=== PATIENT | male | born 1940 | race Caucasian/White ===

== ENCOUNTER 2017-03-29 15:43 | Inpatient (IN) | payer MEDICARE, BC ==
[~2017-03-29] VITALS: Ht 172.7 cm; Wt 95.6 kg
[~2017-03-29 15:43] MED LIST: ALLO300T2 PO; CITA40TA4 PO; PANT40TA3 PO; SIMV20TA PO
[2017-03-29 16:04] VITALS: BP 126/80; PULSE 86; RESP 16; TEMP 98.1; O2SAT 95
[2017-03-29] MEDS ORDERED: SODIUM CHLORIDE 0.9% FLUSH 10 ML FLUSH IVF PRN (16:45)
[2017-03-29] MEDS ORDERED: SODIUM CHLORID 0.9% 500 ML INJ 500 ML IV ONE (16:45)
--- NOTE | 2017-03-29 16:58 | PD ---
HPI Chief Complaint: Dizziness Time Seen by Provider: 16:37 Travel History International Travel<30 days: No Contact w/Intl Traveler<30days: No Traveled to known affect area: No History of Present Illness HPI 76-year-old male with a history of colon cancer status post resection 3 days ago at an outside hospital presents emergency Department with weakness and leg cramping. Patient states is doing his chemotherapy with a Dr. Cross. States symptoms been going on ever since he had his surgery, associated with some clear green discharge from his ostomy site. No fevers no abdominal pain no nausea vomiting no chest pain or shortness of breath. PFSH Past Medical History Cancer: Yes (STAGE IV LUNG) Cardiac Catheterization: Yes Cardiovascular Problems: Yes (CABG X 3) Chemotherapy: Yes (R/T LUNG CA) Diabetes: No Endocrine: No Genitourinary: No Immune Disorder: No Musculoskeletal: No Neurologic: No Psychiatric: No Reproductive: No Respiratory: No Myocardial Infarction: Yes Radiation Therapy: Yes (April 11) Past Surgical History Cardiac Surgery: Yes (Quadruple bypass [place] [address] Rodríguez) Coronary Artery Bypass Graft: Yes (X4) Social History Alcohol Use: No Tobacco Use: No Substance Use: No Allergies-Medications (Allergen,Severity, Reaction): Coded Allergies: No Known Allergies (Unverified , 03/29/17) Reported Meds & Prescriptions Reported Meds & Active Scripts Active Reported Fosinopril (Fosinopril Sodium) 10 Mg Tab 10 Mg PO DAILY Lomotil (Diphenoxylate-Atropine) 2.5-0.025 Mg Tab 1-2 Tab PO Q6H PRN Toprol XL (Metoprolol Succinate) 25 Mg Tab 25 Mg PO DAILY Percocet (Oxycodone-Acetaminophen) 5-325 mg Tab 1 Tab PO Q4H PRN Eliquis (Apixaban) 5 Mg Tab 5 Mg PO BID Citalopram (Citalopram Hydrobromide) 40 Mg Tab 40 Mg PO DAILY Review of Systems Except as stated in HPI: all other systems reviewed are Neg Physical Exam Narrative GENERAL: Well-developed well-nourished, no obvious distress. SKIN: Focused skin assessment warm/dry. HEAD: Atraumatic. Normocephalic. EYES: Pupils equal and round. No scleral icterus. No injection or drainage. ENT: No nasal bleeding or discharge. Mucous membranes pink and moist. NECK: Trachea midline. No JVD. CARDIOVASCULAR: Regular rate and rhythm. No murmur appreciated. RESPIRATORY: No accessory muscle use. Clear to auscultation. Breath sounds equal bilaterally. GASTROINTESTINAL: Abdomen soft, non-tender, nondistended. Hepatic and splenic margins not palpable. Healing abdominal wounds from Surgery, left-sided colostomy bag full of very liquidy green stool. Left-sided CONOR drain with minimal serous drainage. MUSCULOSKELETAL: No obvious deformities. No clubbing. No cyanosis. No edema. NEUROLOGICAL: Awake and alert. No obvious cranial nerve deficits. Motor grossly within normal limits. Normal speech. PSYCHIATRIC: Appropriate mood and affect; insight and judgment normal. Data Data Last Documented VS Vital Signs Date Time Temp Pulse Resp B/P Pulse Ox O2 Delivery O2 Flow Rate FiO2 03/29/17 20:53 Room Air 03/29/17 17:12 99 03/29/17 16:04 98.1 86 16 126/80 Orders Electrocardiogram (03/29/17 16:44) Complete Blood Count With Diff (03/29/17 16:44) Comprehensive Metabolic Panel (03/29/17 16:44) Magnesium (Mg) (03/29/17 16:44) Prothrombin Time / Inr (Pt) (03/29/17 16:44) Act Partial Throm Time (Ptt) (03/29/17 16:44) Ecg Monitoring (03/29/17 16:44) Iv Access Insert/Monitor (03/29/17 16:44) Oximetry (03/29/17 16:44) Oxygen Administration (03/29/17 16:44) Sodium Chloride 0.9% Flush (Ns Flush) (03/29/17 16:45) Sodium Chlorid 0.9% 500 Ml Inj (Ns 500 M (03/29/17 16:45) Morphine Inj (Morphine Inj) (03/29/17 18:45) Sodium Chlor 0.9% 1000 Ml Inj (Ns 1000 M (03/29/17 20:45) Admit Order (Ed Use Only) (03/29/17 ) Labs Laboratory Tests Test 03/29/17 17:15 White Blood Count 12.5 TH/MM3 Red Blood Count 4.74 MIL/MM3 Hemoglobin 13.8 GM/DL Hematocrit 41.6 % Mean Corpuscular Volume 87.7 FL Mean Corpuscular Hemoglobin 29.1 PG Mean Corpuscular Hemoglobin 33.2 % Concent Red Cell Distribution Width 13.8 % Platelet Count 1017 TH/MM3 Mean Platelet Volume 7.2 FL Neutrophils (%) (Auto) 73.7 % Lymphocytes (%) (Auto) 19.7 % Monocytes (%) (Auto) 5.8 % Eosinophils (%) (Auto) 0.2 % Basophils (%) (Auto) 0.6 % Neutrophils # (Auto) 9.2 TH/MM3 Lymphocytes # (Auto) 2.5 TH/MM3 Monocytes # (Auto) 0.7 TH/MM3 Eosinophils # (Auto) 0.0 TH/MM3 Basophils # (Auto) 0.1 TH/MM3 CBC Comment AUTO DIFF Differential Comment AUTO DIFF CONFIRMED Platelet Estimate HIGH Platelet Morphology Comment ENLARGED Prothrombin Time 11.4 SEC Prothromb Time International 1.0 RATIO Ratio Activated Partial 32.4 SEC Thromboplast Time Sodium Level 125 MEQ/L Potassium Level 5.0 MEQ/L Chloride Level 91 MEQ/L Carbon Dioxide Level 20.3 MEQ/L Anion Gap 14 MEQ/L Blood Urea Nitrogen 45 MG/DL Creatinine 4.93 MG/DL Estimat Glomerular Filtration 11 ML/MIN Rate Random Glucose 129 MG/DL Calcium Level 9.5 MG/DL Magnesium Level 2.8 MG/DL Total Bilirubin 0.5 MG/DL Aspartate Amino Transf 55 U/L (AST/SGOT) Alanine Aminotransferase 34 U/L (ALT/SGPT) Alkaline Phosphatase 180 U/L Total Protein 8.1 GM/DL Albumin 2.6 GM/DL MDM Medical Decision Making Medical Screen Exam Complete: Yes Emergency Medical Condition: Yes Interpretation(s) EKG shows sinus rhythm with normal axis and normal R-wave progression. Nonspecific RSR prime pattern in V1, no concerning ST segment changes. Abnormal EKG. Differential Diagnosis Dehydration, electrolyte abnormality, short gut syndrome, acute kidney injury Narrative Course Patient roomed emergency Department, significant findings are copious output from colostomy which is watery tinted green. He appears dehydrated, acute kidney injury present. Patient was discussed with Ellis Bautista for admission to Dr. Whittington Diagnosis Primary Impression: Acute kidney injury Additional Impression: Hyponatremia Admitting Information Admitting Physician Requests: Admit Condition: Stable Kojo Cabrera MD Mar 29, 2017 16:58
[2017-03-29 17:12] VITALS: O2SAT 99
[2017-03-29] MEDS ORDERED: PERC5TAB12 PO (17:20)
[2017-03-29] MEDS ORDERED: APIX5TAB PO (17:20)
[2017-03-29] MEDS ORDERED: LOMO2.5T PO (17:20)
[2017-03-29] MEDS ORDERED: FOSI10TA PO (17:20)
[2017-03-29] MEDS ORDERED: TOPR25TA PO (17:20)
[2017-03-29 17:37] LABS: AUTOMATED NEUTROPHIL # 9.2 TH/MM3 (1.8-7.7); BASOPHIL # 0.1 TH/MM3 (0-0.2); BASOPHIL % 0.6 % (0.0-2.0); EOSINOPHIL % 0.2 % (0.0-4.0); HEMATOCRIT 41.6 % (39.0-51.0); LYMPH % 19.7 % (9.0-44.0); LYMPHOCYTE # 2.5 TH/MM3 (1.0-4.8); MEAN CELL VOLUME 87.7 FL (80.0-100.0); MEAN CORPUSCULAR HEMOGLOBIN 29.1 PG (27.0-34.0); MEAN CORPUSCULAR HGB CONC 33.2 % (32.0-36.0); MONO % 5.8 % (0.0-8.0); NEUT % 73.7 % (16.0-70.0); PLATELET COUNT 1017 TH/MM3 (150-450); RED BLOOD COUNT 4.74 MIL/MM3 (4.50-5.90); RED CELL DISTRIBUTION WIDTH 13.8 % (11.6-17.2); WHITE BLOOD COUNT 12.5 TH/MM3 (4.0-11.0)
[2017-03-29 17:43] LABS: HEMO FLAGS AUTO DIFF
[2017-03-29 17:51] LABS: APTT (PATIENT) 32.4 SEC (24.3-30.1); PROTHROMBIN TIME - PATIENT 11.4 SEC (9.8-11.6)
[2017-03-29 18:15] LABS: ALKALINE PHOSPHATASE 180 U/L (45-117); ALT (GPT) 34 U/L (12-78); ANION GAP 14 MEQ/L (5-15); AST (GOT) 55 U/L (15-37); BICARBONATE 20.3 MEQ/L (21.0-32.0); BLOOD UREA NITROGEN 45 MG/DL (7-18); CHLORIDE 91 MEQ/L (98-107); GLOMERULAR FILTRATION RATE 11 ML/MIN (>89); MAGNESIUM 2.8 MG/DL (1.5-2.5); SODIUM (NA) 125 MEQ/L (136-145); TOTAL BILIRUBIN ADULT 0.5 MG/DL (0.2-1.0)
[2017-03-29 18:32] LABS: PLATELET ESTIMATE SMEAR HIGH (NORMAL); PLATELET MORPHOLOGY ENLARGED (NORMAL); SCAN/DIFF AUTO DIFF CONFIRMED
[2017-03-29] MEDS ORDERED: MORPHINE SULFATE 8 MG/ML INJ IV PUSH ONE (18:45)
[2017-03-29] MEDS ORDERED: SODIUM CHLOR 0.9% 1000 ML INJ 1,000 ML IV ONE (20:45)
[2017-03-29] MEDS ORDERED: ACETAMINOPHEN 325 MG TAB PO PRN ×2 (21:30)
[2017-03-29] MEDS ORDERED: NALOXONE HCL 0.4 MG/ML AMP IV PRN (21:30)
[2017-03-29] MEDS ORDERED: SENNOSIDES 8.6 MG TAB PO PRN (21:30)
[2017-03-29] MEDS ORDERED: SODIUM CHLORIDE 0.9% FLUSH 10 ML FLUSH IV FLUSH PRN (21:30)
[2017-03-29] MEDS ORDERED: MORPHINE SULFATE 4 MG/ML INJ IV PUSH PRN (21:30)
[2017-03-29] MEDS ORDERED: ONDANSETRON HCL 4 MG/2 ML VIAL IVP PRN (21:30)
[2017-03-29] MEDS ORDERED: diphenhydrAMINE HCL 50 MG/ML VIAL IV STA (21:46)
--- NOTE | 2017-03-29 21:52 | EKG ---
Date Performed: 03/29/2017 Time Performed: 17:33:59 PTAGE: 76 years EKG: Baseline artifact present POSSIBLE RIGHT VENTRICULAR CONDUCTION DELAY NONSPECIFIC T-WAVE AB NORMALITY ABNORMAL RHYTHM ECG Compared to prior electrocardiogram, Nonspecific T wave changes are bet ter-prior EKG gas artifact. PREVIOUS TRACING : 05/24/2016 08.14 DOCTOR: Daniel Esparza Interpretating Date/Time 03/29/2017 21:52:04
[2017-03-29 22:00] VITALS: O2SAT 98
[2017-03-29] MEDS: SODIUM CHLOR 0.9% 1000 ML INJ 1,000 ML IV SCH (22:17)
[2017-03-29] MEDS: HEPARIN SODIUM - SQ 10,000 UNITS/ML VIAL SQ SCH (22:17)
[2017-03-29 22:18] VITALS: BP 121/55; PULSE 62; RESP 20; O2SAT 96
[2017-03-30] VITALS (7 sets, daily range): BP systolic 105–117; BP diastolic 58–65; PULSE 69–137; RESP 17–22; TEMP 96.4–98.9; O2SAT 93–95
--- NOTE | 2017-03-30 05:43 | MH ---
cc: ARVIND GALLO DATE OF ADMISSION: 03/29/[address] Buckley TIME OF EVALUATION 23:30 CHIEF COMPLAINT Weakness, muscle cramps in the arms and legs. HISTORY OF PRESENT ILLNESS This is a pleasant 76-year-old male who has been battling rectal cancer for sometime. He has undergone chemo and radiation and recently underwent an ileostomy with robotic surgery in [place], [place], for excision of the tumor. He has an ileostomy as well as a CONOR drain in place. The patient was released from the hospital. Since being home, the patient's appetite has been very poor. He has been trying to drink water but admits that he has not been drinking enough. During his hospitalization he also had A-fib with RVR. He was placed on Eliquis as well as a blood pressure medicine and he has not been having any chest pain or shortness of breath. He is not complaining of palpitations. He has been taking all of his medication but the big issue is that he is dehydrated and is unable to eat. In the past 24 hours he has broken out with a rash that is spreading throughout both of his arms and legs and a little bit onto his torso. It is very pruritic. He does not complain of fever or chills. Did have some nausea but has not vomited and is having a lot ostomy output. MEDICATIONS ON ADMISSION Please see the chart. ALLERGIES None. PAST MEDICAL HISTORY 1. Coronary artery disease status post bypass surgery. 2. Hypertension. 3. Anxiety. 4. Prostate cancer status post radiation. 5. Rectal cancer status post radiation, chemo and now robotic-assisted surgery. SOCIAL HISTORY Quit smoking 27 years ago. . No recent alcohol. FAMILY HISTORY Non-contributory to this admission. REVIEW OF SYSTEMS A 10-point review of systems gone over with the patient and his . He is not aware of having any kidney issues. He denies any other significant changes in his medication or his overall health. He is due to follow up in [place] next week with the surgeon. A 10-point review of systems noted. PERTINENT FINDINGS ON PHYSICAL EXAMINATION VITAL SIGNS: The patient is afebrile, heart rate 62, respirations 20, blood pressure 121/77. GENERAL: This is a 76-year-old male who appears mildly uncomfortable, keeps scratching his arms but is in no respiratory distress. HEENT: Mucous membranes are mildly dry. There is no jaundice. NECK: Supple. CARDIOVASCULAR SYSTEM: Regular rate and rhythm. RESPIRATORY SYSTEM: Lungs are clear. GASTROINTESTINAL SYSTEM: Bowel sounds are present. There is an ileostomy in the mid-abdomen with good output. No surrounding erythema is noted. There is a CONOR drain in the left abdomen. The insertion site shows no drainage or surrounding erythema. SYSTEM: No suprapubic tenderness. No CVA tenderness. MUSCULOSKELETAL SYSTEM: No edema. Bakari's negative. Distal pulses are palpable. NEUROLOGIC EXAM: Awake, alert, oriented. Speech is clear and fluent. Moving all extremities symmetrically. SKIN EXAM: There is an urticarial rash that is most pronounced on the left forearm but is on both forearms, both thighs, buttocks and a little bit onto the torso. INVESTIGATIONS White count is 12.5, hemoglobin 13.8, platelets are 1017. INR is 1. Sodium is 125, potassium is 5, BUN is 45, creatinine is 4.93 (previous BUN was 19, creatinine was 1.2 on May of 2016). Bilirubin is 0.5, albumin is 2.6. IMPRESSION 1. Acute renal failure. 2. Dehydration. 3. Hyponatremia. 4. Recent ileostomy with rectal tumor removed. 5. History of coronary artery disease status post CABG. 6. Hypertension. 7. Anxiety. 8. History of prostate cancer. DISCUSSION The patient is being admitted to Dr. Gallo's service. The patient meets inpatient criteria due to the severity of his renal failure without which hospitalization includes a high risk of collapsing, going into cardiac arrhythmias or multisystem organ failure. During his hospital stay he will be aggressively hydrated, electrolytes will be monitored and replaced as needed. Benadryl will be used for his rash. We will try to adjust his medications due to his renal failure. Will check renal ultrasound and a urinalysis and follow up labs in the morning and make further recommendations as this case progresses. Estimated length of stay is 4 to 5 days. Anticipated discharge is home. Dictated by: Luke Bautista PA-C MD LUCITA De Leon/SHAQUILLE /10:39 PM /5:16 AM
--- NOTE | 2017-03-30 07:54 | HHI.PR ---
Subjective Remarks Awake but weakened Not eating very much Drinking very much Liquidy loose diarrhea noted in colostomy bag present (Enedelia Pro) Objective Objective Results - Vital Signs Date Time Temp Pulse Resp B/P Pulse Ox O2 Delivery O2 Flow Rate FiO2 03/30/17 04:00 98.9 78 18 114/64 93 03/30/17 00:00 98.8 137 22 105/64 94 03/29/17 22:18 62 20 121/55 96 Room Air 03/29/17 22:00 98 03/29/17 20:53 Room Air 03/29/17 20:50 Room Air 03/29/17 20:50 Room Air 03/29/17 17:12 99 Room Air 03/29/17 17:12 99 Room Air 03/29/17 16:56 Room Air 03/29/17 16:04 98.1 86 16 126/80 95 (Enedelia Pro) Result Diagram: 03/29/17 1715 03/29/17 1715 ROS General: Fatigue, Weakness, Other (12 point ROS done positives noted) Pulmonary: Cough (occasional) GI: Abdominal Pain (generalized upper abdomen), Diarrhea (loose stools in colostomy bag), N/V (nausea but no vomiting) (Enedelia Pro) Physical Exam Physical Exam PHYSICAL EXAMINATION GENERAL: This is a elderly male He is awake, answers simple questions only HEAD: Normocephalic Facial features appear symmetric. OROPHARYNGEAL: Oropharynx clear but dry NECK: Supple. Trachea midline without deviation. CARDIAC: Regular rhythm, regular rate, S1 and S2 are heard. I'll leave distant LUNGS: Diminished to auscultation bilaterally. No wheezing noted ABDOMEN: Soft, tender to light palpation upper abdomen, and realized, no appetite , bowel sounds soft EXTREMITIES: No edema. Her extremities warm NEUROLOGICAL: Patient mood and affect quiet SKIN:Warm and dry (Enedelia Pro) A/P Assessment and Plan 1. Acute renal failure. Will continue IV fluids at 50 cc an hour, she has not eaten or drinking very much, nephrology consult done 2. Dehydration. IV hydration monitor labs 3. Hyponatremia. Encourage patient to drink some juices, not taking very much by mouth in 4. Recent ileostomy with rectal tumor removed. Patient has ileostomy with dark watery loose stools, check for C. difficile and Lomotil ordered for his symptoms 5. History of coronary artery disease status post CABG. Medical management 6. Hypertension. Monitor vitals medical management 7. Anxiety. Patient is quiet but does answer questions. Discussed briefly his wishes for CODE STATUS which includes ventilator and CPR if needed. Patient has not thought about what his wishes are, but is very concerned that his health is declining especially since this last surgery and his diagnosis of cancer. May need palliative care in the future, currently CODE STATUS is full code full aggressive care 8. History of prostate cancer. Will review labs and recent testing per oncology, will review for possible consult. #9. Diarrhea, will check for C. difficile, Imodium ordered when necessary Vital signs reviewed afebrile heart rate labile most of the time in the 70s and 80s but has been noted to be tachycardic 130s with activity but comes right back down Labs reviewed potassium level 5., Patient has history of renal failure, leukocytosis with count at 12.5, alkaline phosphatase 180, (Enedelia Pro) Assessment and Plan patient seen and examined agree with above assessment and plan increase i/v fluids to 100cc/hr nephrology consult pending encourage po intake Renal ultrasound pending check stool for C diff plan of care discussed with patient and family at bedside discussed with Enedelia PEMBERTON (Jessica Whittington MD) Enedelia Pro Mar 30, 2017 07:54 Jessica Whittington MD Mar 30, 2017 13:43
[2017-03-30] MEDS ORDERED: FAMOTIDINE 20 MG TAB PO SCH (09:00)
[2017-03-30] MEDS ORDERED: PNEUMOCOCCAL POLYVALENT INJ 25 MCG/0.5 ML SYR IM ONE (09:00)
[2017-03-30] MEDS: SODIUM CHLOR 0.9% 1000 ML INJ 1,000 ML IV SCH ×3 (09:09→18:11)
[2017-03-30] MEDS: HEPARIN SODIUM - SQ 10,000 UNITS/ML VIAL SQ SCH ×2 (09:10→21:29)
[2017-03-30] MEDS: SODIUM CHLORIDE 0.9% FLUSH 10 ML FLUSH IV FLUSH SCH ×2 (09:12→21:30)
[2017-03-30] MEDS: MORPHINE SULFATE 4 MG/ML INJ IV PUSH PRN (10:42)
[2017-03-30] MEDS: diphenhydrAMINE HCL 25 MG CAP PO PRN ×2 (10:44→16:21)
[2017-03-30] MEDS ORDERED: LOPERAMIDE HCL 2 MG CAP PO PRN (11:00)
[2017-03-30 13:15] LABS: AUTOMATED NEUTROPHIL # 7.9 TH/MM3 (1.8-7.7); BASOPHIL % 0.3 % (0.0-2.0); EOSINOPHIL # 0.1 TH/MM3 (0-0.4); EOSINOPHIL % 1.3 % (0.0-4.0); HEMATOCRIT 35.5 % (39.0-51.0); LYMPHOCYTE # 1.3 TH/MM3 (1.0-4.8); MEAN CELL VOLUME 86.9 FL (80.0-100.0); MEAN CORPUSCULAR HEMOGLOBIN 30.3 PG (27.0-34.0); MEAN CORPUSCULAR HGB CONC 34.8 % (32.0-36.0); MONO % 3.9 % (0.0-8.0); NEUT % 81.5 % (16.0-70.0); PLATELET COUNT 750 TH/MM3 (150-450); RED BLOOD COUNT 4.09 MIL/MM3 (4.50-5.90); RED CELL DISTRIBUTION WIDTH 13.9 % (11.6-17.2); WHITE BLOOD COUNT 9.7 TH/MM3 (4.0-11.0)
[2017-03-30 13:23] LABS: BICARBONATE 20.6 MEQ/L (21.0-32.0); POTASSIUM 4.7 MEQ/L (3.5-5.1)
[2017-03-30 13:48] LABS: HEMO FLAGS AUTO DIFF
[2017-03-30 14:20] LABS: BANDS 3 % (0-6); EOSINOPHILS 1 % (0-4); NEUTROPHIL # MANUAL DIFF 6.2 TH/MM3 (1.8-7.7); PLATELET ESTIMATE SMEAR HIGH (NORMAL); PLATELET MORPHOLOGY ENLARGED (NORMAL); POLYS (SEG NEUTROPHILS) 61 % (16-70); SCAN/DIFF FINAL DIFF MANUAL; WBC DIFF SAMPLE 100
--- NOTE | 2017-03-30 14:30 | RADRPT ---
EXAM DATE/TIME: 03/30/2017 10:27 [facility] COMPARISON: No previous studies available for comparison. INDICATIONS : Increased BUN/Creatinine. MEDICAL HISTORY : Myocardial infarction. Hypertension. Carcinoma, lung. Chemotherapy. Radiation therapy. Blood transfus ion. Measles. SURGICAL HISTORY : CABG. Colon resection. ENCOUNTER: Initial ACUITY: 1 day PAIN SCORE: 5/10 LOCATION: Bilateral flank MEASUREMENTS: RIGHT KIDNEY: 11.0 x 5.4 x 4.5 cm LEFT KIDNEY: 11.4 x 4.2 x 4.9 cm FINDINGS: There is no hydronephrosis. No definite solid mass is identified. No definite stone is identified f or technique. The bladder is grossly intact for technique and not being completely distended during t he exam. CONCLUSION: Unremarkable renal ultrasound. Kevyn Patterson MD on March 30, 2017 at 14:28 Board Certified Radiologist. This report was verified electronically.
--- NOTE | 2017-03-30 19:19 | MB ---
cc: PRUDENCE CHILDRESS MD DATE OF CONSULTATION 03/30/17 REASON FOR CONSULTATION Elevated BUN and creatinine for evaluation. HISTORY OF PRESENT ILLNESS This is a 76-year-old male with past medical history of recent rectal surgery, hypertension, history of prostate cancer, ischemic heart disease post coronary artery bypass grafting, anxiety and possible chronic kidney disease who came to the hospital because of generalized weakness, feeling tired and muscle cramps. I was called to see the patient because of elevated BUN and creatinine. The patient had BUN of 45 and creatinine of 4.9 on presentation and today the creatinine is 5.1. The patient previously had creatinine of 1.2-1.6. This was in May of last year. He denies any known history of renal disease, but his creatinine was elevated in the past. The patient recently has been diagnosed with rectal cancer and underwent robotic surgery at [facility] with ileostomy and also underwent chemo and radiation therapy. The patient has CONOR drain in place. He was supposed to go back there, but he was feeling too weak and tired to go back. The patient lives here in [facility] and went there for surgery. He does not have any nausea or vomiting, but his taste is not very good and he is not eating or drinking enough. He does not have any dysuria, hematuria but did notice that he has decreased urine output. He is not taking any nonsteroidal anti-inflammatory drugs. PAST MEDICAL HISTORY 1. Hypertension, 2. Ischemic heart disease, 3. Anxiety, 4. Prostate cancer, 5. Chronic kidney disease, 6. History of rectal cancer PAST SURGICAL HISTORY 1. Robotic rectal cancer surgery and had ileostomy placed 2. Coronary artery bypass grafting in the past. REVIEW OF SYSTEMS There is no history of fever. No sore throat. No headache, dizziness or blurring of vision. He has generalized weakness, feeling tired, not eating well, decreased appetite. There is no nausea or vomiting. He has mild pain around the ileostomy and has a brownish liquid coming out from the ileostomy. There is no dysuria or hematuria but did notice has decreased urine output. He is not taking any nonsteroidal anti-inflammatory drugs. SOCIAL HISTORY The patient is . He stopped smoking a long time ago. There is no history of heavy alcoholism. FAMILY HISTORY Noncontributory. ALLERGIES NO KNOWN DRUG ALLERGIES. MEDICATIONS Currently he is getting 1. Normal saline 100 an hour. 2. Heparin 5000 units subcu q. 12-hour. 3. Famotidine 10 mg q.12 h. 4. Zofran. 5. Tylenol as needed. 6. Morphine as needed. PHYSICAL EXAMINATION GENERAL: The patient is awake, alert. He is not in acute distress. VITAL SIGNS: Blood pressure 107/62, temperature 97.8, oxygen saturation 94-95%. There is no significant hypotensive episode during this admission. HEENT: Pupils equal reacting to light. Nonicteric sclerae. Conjunctivae normal. NECK: Supple. JVD is not elevated. LUNGS: The patient has bilateral good air entry with occasional wheezing. HEART: S1, S2, regular rhythm. ABDOMEN: Distended, soft, lax. There is ileostomy in place with CONOR drain also in place. EXTREMITIESa: He has no edema in the legs. LABORATORY DATA WBC count 9.7, hemoglobin 10.4, platelet count of 750, neutrophils 81.5%. Sodium 128, potassium 4.7, chloride 92, bicarb 20.6, BUN 51, creatinine 5.1, calcium is 8.6, phosphorus 5.4. Magnesium 2.8, AST is 55, ALT is 34, alkaline phosphatase 130, total protein is 8.1 with albumin of 2.6, INR 1.0. There is no urinalysis done. IMAGING STUDIES The patient has ultrasound of the kidneys done which shows that he has both normal size kidneys and there is no hydronephrosis or solid mass. ASSESSMENT/PLAN 1. Acute kidney injury 2. Hyponatremia. 3. Post rectal surgery and ileostomy. 4. History of hypertension 5. Ischemic heart disease with history of coronary artery bypass grafting. The patient has very high BUN and creatinine. It seems like he has underlying chronic kidney disease and developed acute kidney injury. 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 The differential diagnosis will be either prerenal or possibility of ATN or acute interstitial nephritis. I will get the urine sodium and osmolality and get the urinalysis to see if he has any proteinuria. I agree with continuing the IV fluid. The sodium is slightly better, is 128. It was 125 on admission, potassium has been normal. Avoid any nephrotoxins. Follow the urine output and the BUN and creatinine. Thank you for the consultation. Over the weekend, the patient will be followed by Dr. Guzman. MD ERIKA Osborne/ /6:15 PM /6:55 PM
[2017-03-30 20:21] LABS: BLOOD, URINE NEG (NEG); COMMENT (UR) CULT NOT INDICATED; CULTURE IF INDICATED CULT NOT INDICATED; GLUCOSE,URINE NEG (NEG); HYALINE CAST, URINE 68 /lpf (RARE); KETONE, URINE NEG (NEG); MUCUS URINE FEW /lpf (OCC); NITRITE,URINE NEG (NEG); SQUAMOUS EPITHELIAL CELL URINE 3 /hpf (0-5); URINE COLOR YELLOW (YELLW/STRAW)
[2017-03-30] MEDS: FAMOTIDINE 20 MG TAB PO SCH (21:30)
[2017-03-31] VITALS: BP 108/57; PULSE 100; RESP 18; TEMP 97.6; O2SAT 96
[2017-03-31] MEDS: MORPHINE SULFATE 4 MG/ML INJ IV PUSH PRN (01:25)
[2017-03-31 04:00] VITALS: BP 107/64; PULSE 72; RESP 18; TEMP 98.1; O2SAT 94
[2017-03-31] MEDS: SODIUM CHLOR 0.9% 1000 ML INJ 1,000 ML IV SCH ×2 (05:27→21:39)
[2017-03-31 06:36] LABS: C. DIFF EPI 027 PRESUMPTIVE NEGATIVE (NEGATIVE); C. DIFF TOXIN PCR NEGATIVE (NEGATIVE)
[2017-03-31 08:00] VITALS: BP 104/66; PULSE 70; RESP 18; TEMP 97.8; O2SAT 97
[2017-03-31] MEDS: FAMOTIDINE 20 MG TAB PO SCH ×2 (08:41→21:39)
[2017-03-31] MEDS: SODIUM CHLORIDE 0.9% FLUSH 10 ML FLUSH IV FLUSH SCH ×2 (09:00→21:00)
--- NOTE | 2017-03-31 11:39 | HHI.PR ---
Subjective Remarks Awake. States he is eating a little bit and drinking a little. Color pale in room encouraging him in feeding him Patient resting in bed IV fluids continue (Enedelia Pro) Objective Objective Results - Vital Signs Date Time Temp Pulse Resp B/P Pulse Ox O2 Delivery O2 Flow Rate FiO2 03/31/17 08:00 97.8 70 18 104/66 97 03/31/17 04:00 98.1 72 18 107/64 94 03/31/17 00:00 97.6 100 18 108/57 96 03/30/17 20:00 96.4 69 18 116/58 94 03/30/17 16:00 97.8 78 17 107/62 95 03/30/17 12:00 97.2 74 18 117/65 94 I/O 03/30/17 03/30/17 03/30/17 03/31/17 03/31/17 03/31/17 06:59 14:59 22:59 06:59 14:59 22:59 Intake Total 922 ml 360 ml Output Total 280 ml 600 ml Balance 642 ml -240 ml Intake Oral 480 ml 360 ml IV Total 442 ml Output Urine Total 400 ml Stool Total 280 ml 200 ml # Voids 1 2 # Bowel Movements 3 (Enedelia Pro) Result Diagram: 03/30/17 1240 03/30/17 1240 ROS General: Fatigue, Weakness, Other (10 point ROS done positives noted) GI: Other (appetite and by mouth intake minimal, mildly improved with feeding him) Neuro/MS: Other (mild anxiety) (Enedelia Pro) Physical Exam Physical Exam PHYSICAL EXAMINATION GENERAL: This is a frail elderly male Resting in the bed He is alert and awake, HEAD: Normocephalic OROPHARYNGEAL: Oropharynx clear NECK: Supple. Trachea midline without deviation. CARDIAC: Regular rhythm, regular rate, S1 and S2 are heard. LUNGS: Clear to auscultation bilaterally. Volumes are low, No use of accessory muscles on inspiration or expiration. ABDOMEN: Soft, nontender, no organomegaly or masses. Bowel sounds are heard in all four quadrants. No rebound. No guarding. EXTREMITIES: no edema. Pulses equal bilateral. [] cyanosis. NEUROLOGICAL: Patient mood and affect short quick answers mild anxiety SKIN:Warm, dry, ready (Enedelia Pro) A/P Assessment and Plan Vital signs reviewed patient's afebrile other trends normal Labs reviewed, UA shows yellow hazy urine but no obvious infection, anemia mild 12.4 probably secondary to chronic disease, leukocytosis resolved currently 9.5 but will continue to monitor, sodium improved 128 continue IV fluids, phosphorus elevated 5.4, BUN and creatinine continued to mildly climb Acute renal failure. Will continue IV fluids at 50 cc an hour, she has not eaten or drinking very much, nephrology consult, probable chronic kidney disease with acute kidney injury this patient is not eating or drinking Patient may have ATN or acute interstitial nephritis, will check urine sodium and osmolality, UA, avoid any nephrotoxins Dehydration. Hyponatremia, all being evaluated per renal, seems to be better with IV fluids IV hydration monitor labs, currently continue IV fluids Hyponatremia. Encourage patient to drink some juices, mild minimal by mouth intake this morning if is given it to him Recent ileostomy with rectal tumor removed. Patient has ileostomy with dark watery loose stools, noted in ileostomy bag, explained to that this is normal consistency History of coronary artery disease status post CABG. Medical management Hypertension. Monitor vitals medical management Anxiety., Feeling somewhat better today but gives very short answers. States he is tired of being sick History of prostate cancer. Will review labs and recent testing per oncology, will review for possible consult. Diarrhea, medication management if patient has abdominal cramping, dark loose stool looks normal in ileostomy bag Discussed with patient and his Discussed with nurse Discussed with Dr. whittington, seen on her behalf DC planning based on his hospital course and response, (Enedelia Pro) Assessment and Plan patient seen and examined sleepy but arousable, thinks he is doing better today low BP, not on any antihypertensives 250cc NS bolus awaiting labs today Appreciate nephrology input diffuse rash, according to improving. Rash started at home monitor BP continue current care plan of care discussed with patient's at bedside discussed with nursing staff discussed with Enedelia PEMBERTON (Jessica Whittington MD) Enedelia Pro Mar 31, 2017 11:39 Jessica Whittington MD Mar 31, 2017 16:42
[2017-03-31 12:00] VITALS: BP_SYST 81; BP_SYST 83; BP_DIAS 51; BP_DIAS 61; PULSE 95; RESP 20; TEMP 98.1; O2SAT 96
[2017-03-31] MEDS: HEPARIN SODIUM - SQ 10,000 UNITS/ML VIAL SQ SCH ×2 (12:33→21:39)
[2017-03-31] MEDS: diphenhydrAMINE HCL 25 MG CAP PO PRN (15:01)
[2017-03-31 16:00] VITALS: BP 94/51; PULSE 109; RESP 20; TEMP 98.9; O2SAT 97
[2017-03-31 16:08] LABS: ALKALINE PHOSPHATASE 132 U/L (45-117); ALT (GPT) 18 U/L (12-78); ANION GAP 13 MEQ/L (5-15); AST (GOT) 19 U/L (15-37); BICARBONATE 19.6 MEQ/L (21.0-32.0); CHLORIDE 97 MEQ/L (98-107); GLOMERULAR FILTRATION RATE 16 ML/MIN (>89); POTASSIUM 5.2 MEQ/L (3.5-5.1); SODIUM (NA) 130 MEQ/L (136-145); TOTAL BILIRUBIN ADULT 0.3 MG/DL (0.2-1.0)
[2017-03-31 16:13] LABS: BLOOD UREA NITROGEN 53 MG/DL (7-18)
--- NOTE | 2017-03-31 17:43 | HHI.NPPN ---
Subjective History of Present Illness 76 year old with ARF recent ileostomy Review of Systems General Constitutional: Fatigue Objective Data Data 03/30/17 03/31/17 18:59 06:59 Intake Total 442 ml 840 ml Output Total 880 ml Balance 442 ml -40 ml Intake Oral 840 ml IV Total 442 ml Output Urine Total 400 ml Stool Total 480 ml # Voids 1 2 # Bowel Movements 3 Vital Signs Date Time Temp Pulse Resp B/P Pulse Ox O2 Delivery O2 Flow Rate FiO2 03/31/17 16:00 98.9 109 20 94/51 97 03/31/17 12:00 98.1 95 20 83/61 96 81/51 03/31/17 08:00 97.8 70 18 104/66 97 03/31/17 04:00 98.1 72 18 107/64 94 03/31/17 00:00 97.6 100 18 108/57 96 03/30/17 20:00 96.4 69 18 116/58 94 -: 03/30/17 1240 03/31/17 1431 Physical Exam General Appearance: Well Developed, Well Nourished Neck Neck Exam: Neck Supple Pulmonary Resp Exam: Clear Bilaterally Cardiology CV Exam: Regular Gastrointestinal/Abdomen GI Exam: Soft (ileostomy) Extremeties Extremities Exam: No Edema Assessment/Plan Problem List: (1) Acute kidney injury Plan: improved with hydration Cr declined K higher monitor (2) Metastatic colon cancer Plan: s/p ileostomy (3) Hyponatremia Plan: Na 130 better Lonnie Guzman MD Mar 31, 2017 17:42
[2017-03-31 20:00] VITALS: BP 120/58; PULSE 74; RESP 18; TEMP 98; O2SAT 98
[2017-04-01] VITALS: BP 118/65; PULSE 73; RESP 18; TEMP 97.5; O2SAT 97
[2017-04-01] MEDS: SODIUM CHLOR 0.9% 1000 ML INJ 1,000 ML IV SCH ×2 (00:46→20:46)
[2017-04-01 04:00] VITALS: BP 119/57; PULSE 70; RESP 18; TEMP 97.4; O2SAT 96
[2017-04-01 07:35] LABS: AUTOMATED NEUTROPHIL # 4.3 TH/MM3 (1.8-7.7); BASOPHIL % 0.4 % (0.0-2.0); EOSINOPHIL # 0.1 TH/MM3 (0-0.4); EOSINOPHIL % 1.5 % (0.0-4.0); HEMATOCRIT 30.2 % (39.0-51.0); LYMPHOCYTE # 1.1 TH/MM3 (1.0-4.8); MEAN CELL VOLUME 86.4 FL (80.0-100.0); MEAN CORPUSCULAR HEMOGLOBIN 29.5 PG (27.0-34.0); MEAN CORPUSCULAR HGB CONC 34.1 % (32.0-36.0); MONO % 3.7 % (0.0-8.0); NEUT % 74.4 % (16.0-70.0); PLATELET COUNT 660 TH/MM3 (150-450); RED BLOOD COUNT 3.49 MIL/MM3 (4.50-5.90); RED CELL DISTRIBUTION WIDTH 13.8 % (11.6-17.2); WHITE BLOOD COUNT 5.7 TH/MM3 (4.0-11.0)
[2017-04-01 07:39] LABS: HEMO FLAGS AUTO DIFF
[2017-04-01 07:59] LABS: BICARBONATE 22.1 MEQ/L (21.0-32.0); POTASSIUM 4.3 MEQ/L (3.5-5.1)
[2017-04-01 08:00] VITALS: BP 99/51; PULSE 68; RESP 18; TEMP 98.1; O2SAT 97
[2017-04-01 08:45] LABS: PLATELET ESTIMATE SMEAR HIGH (NORMAL); PLATELET MORPHOLOGY ENLARGED (NORMAL); SCAN/DIFF AUTO DIFF CONFIRMED
--- NOTE | 2017-04-01 09:48 | HHI.PR ---
Subjective Remarks Dozing but responds to verbal stimuli states eating and drinking better, but still small amounts IV fluids at 100 cc an hour continue, acute kidney injury better Hyponatremia trending up Leukocytosis resolved (Enedelia Pro) Objective Objective Results - Vital Signs Date Time Temp Pulse Resp B/P Pulse Ox O2 Delivery O2 Flow Rate FiO2 04/01/17 08:00 98.1 68 18 99/51 97 Manual Cuff/Auscultation 04/01/17 04:00 97.4 70 18 119/57 96 04/01/17 00:00 97.5 73 18 118/65 97 03/31/17 20:00 98.0 74 18 120/58 98 03/31/17 16:00 98.9 109 20 94/51 97 03/31/17 12:00 98.1 95 20 83/61 96 81/51 I/O 03/31/17 03/31/17 03/31/17 04/01/17 04/01/17 04/01/17 07:00 15:00 23:00 07:00 15:00 23:00 Intake Total 360 ml 360 ml 793 ml Output Total 600 ml 15 ml Balance -240 ml 345 ml 793 ml Intake Oral 360 ml 360 ml IV Total 793 ml Output Urine Total 400 ml Stool Total 200 ml Drainage Total 15 ml # Voids 3 3 # Bowel Movements 1 (Enedelia Pro) Result Diagram: 04/01/17 0652 04/01/17 0652 ROS General: Fatigue, Weakness, Other (10 point ROS done positives noted) GI: Other (decreased appetite but and encourage per his and staff to eat and drink more) /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 He is dosing but responds to verbal stimuli HEAD: Normocephalic without any lesion or mass noted. Facial features appear symmetric. OROPHARYNGEAL: Oropharynx without erythema or edema. NECK: Supple. No nuchal rigidity or lymphadenopathy. Trachea midline without deviation. CARDIAC: Regular rhythm, regular rate, S1 and S2 are heard. LUNGS: Diminished to auscultation bilaterally. No active wheezing ABDOMEN: Soft, nontender, no organomegaly or masses. Bowel sounds are heard in all four quadrants. No rebound. No guarding. EXTREMITIES: no edema. Pulses equal bilateral. NEUROLOGICAL: Patient mood and affect appropriate. No focal deficit SKIN:Warm and dry, (Enedelia Pro) A/P Assessment and Plan Vital signs reviewed patient's afebrile other trends normal, monitor BP trends , and continue IV fluids for now Labs reviewed, UA shows yellow hazy urine but no obvious infection, anemia mild 12.4 probably secondary to chronic disease, leukocytosis resolved currently 9.5 but will continue to monitor, sodium improved 133 , continue IV fluids, acute kidney injury improving Recheck labs in the morning Acute renal failure. Will continue IV fluids at 100 cc an hour, patient appetite and fluid intake is improving gradually with the encouragement of his , nephrology consult appreciate input, acute kidney injury is better, sodium is trending up avoid any nephrotoxins, continue to monitor labs Dehydration. Hyponatremia, all being evaluated per renal, seems to be better with IV fluids, 133 today trending up gradual IV hydration monitor labs, currently continue IV fluids Hyponatremia. Encourage patient to drink some juices, mild minimal by mouth intake this morning if is given it to him Recent ileostomy with rectal tumor removed. Patient has ileostomy with dark watery loose stools, noted in ileostomy bag, output is adequate with increased by mouth intake and IV fluids Bowel regimen adequate amounts via ileostomy History of coronary artery disease status post CABG. Medical management Hypertension. Monitor vitals medical management Anxiety., Appears less anxious today no shortness of breath noted, able to lay almost flat and rest History of prostate cancer. Medical management for now DVT prophylaxis with heparin PPI prophylaxis Discussed with patient and his Discussed with nurse Discussed with Dr. whittington, seen on her behalf DC planning based on his hospital course and response, continue to monitor patient's acute renal failure appetite, Physical therapy and OT to an eval, increase activity, eval and treat Check labs in the morning (Enedelia Pro) Assessment and Plan patient seen and examined doing better BP improved renal function improved continue i/v fluids labs in am plan of care discussed with patient and at bedside discussed with nursing staff (Jessica Whittington MD) Enedelia Pro Apr 01, 2017 09:48 Jessica Whittington MD Apr 01, 2017 15:53
[2017-04-01] MEDS: SODIUM CHLORIDE 0.9% FLUSH 10 ML FLUSH IV FLUSH SCH ×2 (09:58→20:59)
[2017-04-01] MEDS: FAMOTIDINE 20 MG TAB PO SCH ×2 (09:58→20:53)
[2017-04-01] MEDS: HEPARIN SODIUM - SQ 10,000 UNITS/ML VIAL SQ SCH ×2 (09:58→20:52)
[2017-04-01] MEDS: diphenhydrAMINE HCL 25 MG CAP PO PRN ×2 (09:59→20:53)
[2017-04-01 12:16] VITALS: BP 117/56; PULSE 65; RESP 16; TEMP 97.9; O2SAT 90
[2017-04-01 14:00] VITALS: BP 119/56; PULSE 58; RESP 16; TEMP 97.6; O2SAT 99
--- NOTE | 2017-04-01 16:24 | HHI.NPPN ---
Subjective History of Present Illness 76 year old with ARF recent ileostomy Review of Systems General Constitutional: Fatigue Objective Data Data 03/31/17 04/01/17 19:00 07:00 Intake Total 1153 ml Output Total 15 ml Balance 1138 ml Intake Oral 360 ml IV Total 793 ml Drainage Total 15 ml # Voids 3 3 # Bowel Movements 1 Vital Signs Date Time Temp Pulse Resp B/P Pulse Ox O2 Delivery O2 Flow Rate FiO2 04/01/17 12:16 97.9 65 16 117/56 90 04/01/17 08:00 98.1 68 18 99/51 97 Manual Cuff/Auscultation 04/01/17 04:00 97.4 70 18 119/57 96 04/01/17 00:00 97.5 73 18 118/65 97 03/31/17 20:00 98.0 74 18 120/58 98 -: 04/01/17 0652 04/01/17 0652 Physical Exam General Appearance: Well Developed, Well Nourished Neck Neck Exam: Neck Supple Pulmonary Resp Exam: Clear Bilaterally Cardiology CV Exam: Regular Gastrointestinal/Abdomen GI Exam: Soft (ileostomy) Extremeties Extremities Exam: No Edema Assessment/Plan Problem List: (1) Acute kidney injury Plan: improved with hydration Cr declined further Dr. Figueroa to follow (2) Metastatic colon cancer Plan: s/p ileostomy (3) Hyponatremia Plan: Na 130 better Lonnie Guzman MD Apr 01, 2017 16:24
[2017-04-01 18:05] LABS: BLOOD, URINE NEG (NEG); COMMENT (UR) CULT NOT INDICATED; CULTURE IF INDICATED CULT NOT INDICATED; GLUCOSE,URINE NEG (NEG); KETONE, URINE NEG (NEG); NITRITE,URINE NEG (NEG); SQUAMOUS EPITHELIAL CELL URINE <1 /hpf (0-5); URINE COLOR LIGHT-YELLOW (YELLW/STRAW)
[2017-04-01 20:00] VITALS: BP 133/63; PULSE 73; RESP 18; TEMP 97.9; O2SAT 95
[2017-04-01] MEDS: MORPHINE SULFATE 4 MG/ML INJ IV PUSH PRN (20:53)
[2017-04-02] VITALS: BP 138/68; PULSE 69; RESP 18; TEMP 97.4; O2SAT 95
[2017-04-02 04:00] VITALS: BP 122/56; PULSE 65; RESP 18; TEMP 98.2; O2SAT 97
[2017-04-02 08:16] VITALS: BP 122/58; PULSE 96; RESP 18; TEMP 98.3; O2SAT 98
[2017-04-02] MEDS: SODIUM CHLORIDE 0.9% FLUSH 10 ML FLUSH IV FLUSH SCH ×2 (09:38→22:48)
[2017-04-02] MEDS: FAMOTIDINE 20 MG TAB PO SCH ×2 (09:38→22:45)
[2017-04-02] MEDS: HEPARIN SODIUM - SQ 10,000 UNITS/ML VIAL SQ SCH (09:38)
[2017-04-02] MEDS: SODIUM CHLOR 0.9% 1000 ML INJ 1,000 ML IV SCH ×2 (09:39→16:46)
[2017-04-02 10:00] LABS: MEAN CELL VOLUME 87.6 FL (80.0-100.0); MEAN CORPUSCULAR HEMOGLOBIN 29.5 PG (27.0-34.0); MEAN CORPUSCULAR HGB CONC 33.7 % (32.0-36.0); PLATELET COUNT 654 TH/MM3 (150-450); RED BLOOD COUNT 3.66 MIL/MM3 (4.50-5.90); RED CELL DISTRIBUTION WIDTH 13.8 % (11.6-17.2); REVIEW FLAG FINAL; WHITE BLOOD COUNT 6.3 TH/MM3 (4.0-11.0)
[2017-04-02 10:15] LABS: BICARBONATE 20.5 MEQ/L (21.0-32.0)
--- NOTE | 2017-04-02 10:51 | HHI.NPPN ---
Subjective History of Present Illness 76 year old with ARF recent ileostomy Review of Systems General Constitutional: Fatigue Objective Data Data 04/01/17 04/02/17 19:00 07:00 Intake Total 746 ml Output Total 10 ml 5 ml Balance 736 ml -5 ml IV Total 746 ml Stool Total 3 ml Drainage Total 10 ml 2 ml # Voids 3 # Bowel Movements 0 Vital Signs Date Time Temp Pulse Resp B/P Pulse Ox O2 Delivery O2 Flow Rate FiO2 04/02/17 08:16 98.3 96 18 122/58 98 04/02/17 04:00 98.2 65 18 122/56 97 04/02/17 00:00 97.4 69 18 138/68 95 04/01/17 20:59 18 04/01/17 20:00 97.9 73 18 133/63 95 04/01/17 14:00 97.6 58 16 119/56 99 04/01/17 12:16 97.9 65 16 117/56 90 -: 04/02/17 0900 04/02/17 0900 Physical Exam General Appearance: Well Developed, Well Nourished Neck Neck Exam: Neck Supple Pulmonary Resp Exam: Clear Bilaterally Cardiology CV Exam: Regular Gastrointestinal/Abdomen GI Exam: Soft (ileostomy) Extremeties Extremities Exam: No Edema Assessment/Plan Problem List: (1) Acute kidney injury Plan: improved with hydration Cr declined further Dr. Figueroa to follow (2) Metastatic colon cancer Plan: s/p ileostomy (3) Hyponatremia Plan: Na 130 better Reji Figueroa MD Apr 02, 2017 10:51
--- NOTE | 2017-04-02 12:35 | HHI.PR ---
Subjective Subjective Remarks flat affect awakes to voice, oriented x 3 has no complaints no cp no sob voiding okay no abd pain eating fair at bsd, agreeable with [facility] Review of Systems Constitutional Constitutional Remarks 12 point review of systems completed, difficult to obtain, patient with flat affect, quiet Vitals/Results Intake & Output 04/01/17 04/01/17 04/02/17 15:00 23:00 07:00 Intake Total 746 ml Output Total 10 ml 5 ml Balance 746 ml -10 ml -5 ml IV Total 746 ml Stool Total 3 ml Drainage Total 10 ml 2 ml # Voids 3 # Bowel Movements 0 Vital Signs Vital Signs Date Time Temp Pulse Resp B/P Pulse Ox O2 Delivery O2 Flow Rate FiO2 04/02/17 08:16 98.3 96 18 122/58 98 04/02/17 04:00 98.2 65 18 122/56 97 04/02/17 00:00 97.4 69 18 138/68 95 04/01/17 20:59 18 04/01/17 20:00 97.9 73 18 133/63 95 04/01/17 14:00 97.6 58 16 119/56 99 CBC/BMP: 04/02/17 0900 04/02/17 0900 Lab Results Laboratory Tests Test 04/02/17 09:00 White Blood Count 6.3 TH/MM3 Red Blood Count 3.66 MIL/MM3 Hemoglobin 10.8 GM/DL Hematocrit 32.0 % Mean Corpuscular Volume 87.6 FL Mean Corpuscular Hemoglobin 29.5 PG Mean Corpuscular Hemoglobin 33.7 % Concent Red Cell Distribution Width 13.8 % Platelet Count 654 TH/MM3 Mean Platelet Volume 6.8 FL Sodium Level 137 MEQ/L Potassium Level 5.0 MEQ/L Chloride Level 104 MEQ/L Carbon Dioxide Level 20.5 MEQ/L Anion Gap 13 MEQ/L Blood Urea Nitrogen 26 MG/DL Creatinine 1.83 MG/DL Estimat Glomerular Filtration 36 ML/MIN Rate Random Glucose 98 MG/DL Calcium Level 8.4 MG/DL Physical Exam General General Appearance: Well Developed, Well Nourished, No Acute Distress, Comfortable Eyes Eye Exam: Pupils Equal, Pupils Reactive Ears & Nose Ears & Nose Exam: Nasal Mucosa [place] Throat Throat Exam: Oral Mucosa [place] & Moist Neck Neck Exam: Neck Supple Pulmonary Resp Exam: Clear Bilaterally Cardiology CV Exam: Regular Gastrointestinal/Abdomen GI Exam: Soft (ileostomy), Non-Tender, Bowel Sounds Present, Positive Bowel Movement, Non-Distended GI Remarks Abdomen soft, nontender, has ileostomy, CONOR in place Liquid brown stool Musculoskeletal MS Exam: Joints Intact Integumentary Skin Exam: Warm, Dry Extremeties Extremities Exam: No Edema, Pedal Pulses Palpable Neurologic Neuro Exam: Awake, Oriented, Speech Clear, Moving All Extremities, No Focal Deficits VTE Prophylaxis VTE Prophylaxis Meds: Heparin Assessment/Plan Problem List: (1) Acute kidney injury (2) Metastatic colon cancer (3) History of prostate cancer (4) Dyslipidemia (5) Hypertension (6) Coronary artery disease (7) hx robotic surgery for rectal cancer (8) Weakness (9) Mantle cell lymphoma Assessment/Plan Acute kidney injury resolving, continue with IV fluids Sodium improved, 137 hold ELANA for now Appreciate nephrology input Generalized weakness with cramps, improving, has been getting out of bed Physical therapy following Status post robotic surgery to remove rectal cancer Has CONOR and ileostomy Has adequate output from ileostomy Coronary artery disease, status post CABG Continue home medication Hypertension, stable Resume home medications, BB but hold ELANA Possibly depressed, has a flat affect Continue with supportive care Resume Citalopram History of prostate cancer, stable Heparin for DVT prophylaxis PPI for GI prophylaxis Overall patient improving, improved renal function. Has been more ambulatory and increasing by mouth intake Case management consultation for discharge planning, resume home health care Possibly for discharge tomorrow Repeat labs in the morning Discussed with patient and his Discussed with nurse Discussed with Dr. Acuna Discussed with CM This patient was seen by myself and Dr. Acuna, this note is written on his behalf Problem Qualifiers (1) Coronary artery disease: Qualified Code: I25.10 - Coronary artery disease involving [place] coronary artery of [place] heart without angina pectoris Cecilia Hickey [facility] Apr 02, 2017 12:35
[2017-04-02 12:39] VITALS: BP 135/62; PULSE 66; RESP 18; TEMP 98.7; O2SAT 97
[2017-04-02 16:28] VITALS: BP 147/65; PULSE 61; RESP 20; TEMP 98.2; O2SAT 100
--- NOTE | 2017-04-02 17:14 | HHI.NPPN ---
Subjective History of Present Illness 76-year-old male with past medical history of recent rectal surgery, hypertension, history of prostate cancer, ischemic heart disease post coronary artery bypass grafting, anxiety and possible chronic kidney disease who came to the hospital because of generalized weakness, feeling tired and muscle cramps. I was called to see the patient because of elevated BUN and creatinine. The patient had BUN of 45 and creatinine of 4.9 on presentation. Additional Remarks Patient is alert, not in distress. Review of Systems General Constitutional: Fatigue Objective Data Data 04/01/17 04/02/17 19:00 07:00 Intake Total 746 ml Output Total 10 ml 5 ml Balance 736 ml -5 ml IV Total 746 ml Stool Total 3 ml Drainage Total 10 ml 2 ml # Voids 3 # Bowel Movements 0 Vital Signs Date Time Temp Pulse Resp B/P Pulse Ox O2 Delivery O2 Flow Rate FiO2 04/02/17 16:28 98.2 61 20 147/65 100 04/02/17 12:39 98.7 66 18 135/62 97 04/02/17 08:16 98.3 96 18 122/58 98 04/02/17 04:00 98.2 65 18 122/56 97 04/02/17 00:00 97.4 69 18 138/68 95 04/01/17 20:59 18 04/01/17 20:00 97.9 73 18 133/63 95 -: 04/02/17 0900 04/02/17 0900 Physical Exam General Appearance: Well Nourished, No Acute Distress, Comfortable Eyes Eye Exam: Pupils Equal, Pupils Reactive Ears & Nose Ears & Nose Exam: Nasal Mucosa [place] Throat Throat Exam: Oral Mucosa [place] & Moist Neck Neck Exam: Neck Supple Pulmonary Resp Exam: Clear Bilaterally Cardiology CV Exam: Regular Gastrointestinal/Abdomen GI Exam: Soft (ileostomy), Non-Tender, Bowel Sounds Present, Positive Bowel Movement, Non-Distended Musculoskeletal MS Exam: Joints Intact Integumentary Skin Exam: Warm, Dry Extremeties Extremities Exam: No Edema, Pedal Pulses Palpable Neurologic Neuro Exam: Awake, Oriented, Speech Clear, Moving All Extremities, No Focal Deficits Assessment/Plan Problem List: (1) Acute kidney injury (2) Metastatic colon cancer Plan: s/p ileostomy (3) Hyponatremia Plan: Na 130 better Plan Patient has improvement in the Creatinine. Na. is better. Continue IVF , need to encourage oral intake. Patient get dehydrated easily due to ileostomy. Reji Figueroa MD Apr 02, 2017 17:14
[2017-04-02 20:53] VITALS: BP 136/62; PULSE 68; RESP 20; TEMP 98.6; O2SAT 100
[2017-04-02] MEDS: APIXABAN 5 MG TABLET PO SCH (22:45)
[2017-04-02] MEDS: diphenhydrAMINE HCL 25 MG CAP PO PRN (22:45)
[2017-04-03 00:37] VITALS: BP 151/67; PULSE 67; RESP 20; TEMP 98.3; O2SAT 100
[2017-04-03] MEDS: SODIUM CHLOR 0.9% 1000 ML INJ 1,000 ML IV SCH ×2 (02:27→12:46)
[2017-04-03 05:58] VITALS: BP 123/59; PULSE 77; RESP 20; TEMP 98.6; O2SAT 99
[2017-04-03 08:06] VITALS: BP 122/61; PULSE 60; RESP 18; TEMP 98.6; O2SAT 99
[2017-04-03] MEDS ORDERED: CITALOPRAM HYDROBROMIDE 40 MG TAB PO SCH (09:00)
[2017-04-03] MEDS ORDERED: METOPROLOL SUCCINATE 25 MG EXTENDED RELEASE TAB PO SCH (09:00)
[2017-04-03] MEDS: FAMOTIDINE 20 MG TAB PO SCH (09:04)
[2017-04-03] MEDS: APIXABAN 5 MG TABLET PO SCH (09:05)
[2017-04-03] MEDS: SODIUM CHLORIDE 0.9% FLUSH 10 ML FLUSH IV FLUSH SCH (09:05)
--- NOTE | 2017-04-03 10:31 | HHI.PR ---
Subjective Subjective Remarks walking in room, more talkative, became angry when asked about his mood per nursing, pt. appeared depressed and expressed not wanting to proceed with treatment at times laughing no abd. pain no n/v drinking fluids voiding okay no fever requesting if CONOR can be dc, she has contacted his surgeon to make appointment drainage noted, sosa in color, scan amount Review of Systems Constitutional Constitutional Remarks 12 point review of systems completed, negative except as noted above Vitals/Results Intake & Output 04/02/17 04/02/17 04/03/17 15:00 23:00 07:00 Intake Total 650 ml Output Total 800 ml 2 ml Balance -800 ml 648 ml IV Total 650 ml Output Urine Total 800 ml Stool Total 2 ml # Voids 3 Vital Signs Vital Signs Date Time Temp Pulse Resp B/P Pulse Ox O2 Delivery O2 Flow Rate FiO2 04/03/17 08:06 98.6 60 18 122/61 99 04/03/17 05:58 98.6 77 20 123/59 99 04/03/17 00:37 98.3 67 20 151/67 100 04/02/17 20:53 98.6 68 20 136/62 100 04/02/17 16:28 98.2 61 20 147/65 100 04/02/17 12:39 98.7 66 18 135/62 97 CBC/BMP: 04/02/17 0900 04/02/17 0900 Physical Exam General General Appearance: Well Developed, Well Nourished, No Acute Distress, Comfortable Eyes Eye Exam: Pupils Equal, Pupils Reactive Ears & Nose Ears & Nose Exam: Nasal Mucosa [place] Throat Throat Exam: Oral Mucosa [place] & Moist Neck Neck Exam: Neck Supple Pulmonary Resp Exam: Clear Bilaterally Cardiology CV Exam: Regular Gastrointestinal/Abdomen GI Exam: Soft (ileostomy), Non-Tender, Bowel Sounds Present, Positive Bowel Movement, Non-Distended GI Remarks Abdomen soft, nontender, has ileostomy, CONOR in place-sosa drainage, was serousanguineous yesterday Liquid brown stool Musculoskeletal MS Exam: Joints Intact Integumentary Skin Exam: Warm, Dry Extremeties Extremities Exam: No Edema, Pedal Pulses Palpable Neurologic Neuro Exam: Alert, Awake, Oriented, Speech Clear, Moving All Extremities, No Focal Deficits VTE Prophylaxis VTE Prophylaxis Meds: Heparin Assessment/Plan Problem List: (1) Acute kidney injury (2) Metastatic colon cancer (3) History of prostate cancer (4) Dyslipidemia (5) Hypertension (6) Coronary artery disease (7) hx robotic surgery for rectal cancer (8) Weakness (9) Mantle cell lymphoma Assessment/Plan Acute kidney injury resolving, continue with IV fluids hold ELANA for now Appreciate nephrology input BMP pending Generalized weakness with cramps, improving, has been getting out of bed Physical therapy following improving, ambulatory Status post robotic surgery to remove rectal cancer Has CONOR and ileostomy Has adequate output from ileostomy needs CONOR removed, needs to f/u with surgeon to have removed RN to clean site and applied a new 4x4 Coronary artery disease, status post CABG Continue home medication Hx afib on Eliquis, dc'd heparin yesterday and resumed NOAC Hypertension, stable Continue home medications, BB but hold ELANA Depression, mood labile continue with Citalopram History of prostate cancer, stable Eliquis for DVT prophylaxis PPI for GI prophylaxis Overall patient improving, improved renal function. Has been more ambulatory and increasing by mouth intake Case management consultation for discharge planning, home health care waiting for BMP plan to dc today f/u with surgery and PCP diet-1,2,3 List[place]. PO intake, has high output ileostomy. D/W pt and at length activity-as tolerated Discussed with patient and his Discussed with nurse Discussed with Dr. Acuna Discussed with CM This patient was seen by myself and Dr. Acuna, this note is written on his behalf Problem Qualifiers (1) Hypertension: Qualified Code: I10 - Essential hypertension (2) Coronary artery disease: Qualified Code: I25.10 - Coronary artery disease involving [place] coronary artery of [place] heart without angina pectoris Cecilia Hickey Apr 03, 2017 10:31
[2017-04-03 10:43] LABS: HEMATOCRIT 31.8 % (39.0-51.0); MEAN CELL VOLUME 87.9 FL (80.0-100.0); MEAN CORPUSCULAR HEMOGLOBIN 29.6 PG (27.0-34.0); MEAN CORPUSCULAR HGB CONC 33.6 % (32.0-36.0); PLATELET COUNT 581 TH/MM3 (150-450); RED BLOOD COUNT 3.62 MIL/MM3 (4.50-5.90); RED CELL DISTRIBUTION WIDTH 13.9 % (11.6-17.2); REVIEW FLAG FINAL; WHITE BLOOD COUNT 7.4 TH/MM3 (4.0-11.0)
[2017-04-03 10:48] LABS: BICARBONATE 20.6 MEQ/L (21.0-32.0); POTASSIUM 4.7 MEQ/L (3.5-5.1)
[2017-04-03 12:41] VITALS: BP 131/60; PULSE 61; RESP 20; TEMP 98.4; O2SAT 100
--- NOTE | 2017-04-03 14:12 | HHI.FF ---
Face to Face Verification Diagnosis: (1) Acute kidney injury (2) Metastatic colon cancer (3) Coronary artery disease (4) Hypertension (5) History of prostate cancer (6) hx robotic surgery for rectal cancer Physical Therapy Order: Evaluate and Treat Home Health Nursing Order: Medical education I have seen patient Oswaldo Patrick on 04/03/17. My clinical findings support the need for the requested home health care services because: Ltd mobility - disease progression I certify that my clinical findings support that this patient is homebound because: Post-op weakness Yousif Acuna MD Apr 03, 2017 14:12
[2017-04-03 16:24] VITALS: BP 132/65; PULSE 58; RESP 20; TEMP 98; O2SAT 99
--- NOTE | 2017-04-03 16:58 | HHI.NPPN ---
Subjective History of Present Illness 76-year-old male with past medical history of recent rectal surgery, hypertension, history of prostate cancer, ischemic heart disease post coronary artery bypass grafting, anxiety and possible chronic kidney disease who came to the hospital because of generalized weakness, feeling tired and muscle cramps. I was called to see the patient because of elevated BUN and creatinine. The patient had BUN of 45 and creatinine of 4.9 on presentation. Additional Remarks Patient is alert, no SOB, abd. pain is better. Review of Systems General Constitutional: Fatigue Objective Data Data 04/02/17 04/03/17 19:00 07:00 Intake Total 650 ml Output Total 800 ml 2 ml Balance -800 ml 648 ml IV Total 650 ml Output Urine Total 800 ml Stool Total 2 ml # Voids 3 Vital Signs Date Time Temp Pulse Resp B/P Pulse Ox O2 Delivery O2 Flow Rate FiO2 04/03/17 16:24 98.0 58 20 132/65 99 04/03/17 12:41 98.4 61 20 131/60 100 04/03/17 08:06 98.6 60 18 122/61 99 04/03/17 05:58 98.6 77 20 123/59 99 04/03/17 00:37 98.3 67 20 151/67 100 04/02/17 20:53 98.6 68 20 136/62 100 -: 04/03/17 0846 04/03/17 0846 Physical Exam General Appearance: Well Developed, Well Nourished, No Acute Distress, Comfortable Eyes Eye Exam: Pupils Equal, Pupils Reactive Ears & Nose Ears & Nose Exam: Nasal Mucosa [place] Throat Throat Exam: Oral Mucosa [place] & Moist Neck Neck Exam: Neck Supple Pulmonary Resp Exam: Clear Bilaterally Cardiology CV Exam: Regular Gastrointestinal/Abdomen GI Exam: Soft (ileostomy), Non-Tender, Bowel Sounds Present, Positive Bowel Movement, Non-Distended Musculoskeletal MS Exam: Joints Intact Integumentary Skin Exam: Warm, Dry Extremeties Extremities Exam: No Edema, Pedal Pulses Palpable Neurologic Neuro Exam: Alert, Awake, Oriented, Speech Clear, Moving All Extremities, No Focal Deficits Assessment/Plan Problem List: (1) Acute kidney injury (2) Metastatic colon cancer Plan: s/p ileostomy (3) Hyponatremia Plan: Na 130 better Plan Urine out put is good. Patient has further improvement in the Creatinine. Na. is better. Continue IVF , need to encourage oral intake. Patient get dehydrated easily due to ileostomy. Now for discharge, told to drink more fluid and follow with his PCP. Reji Figueroa MD Apr 03, 2017 16:58
--- NOTE | 2017-04-03 18:01 | HHI.DS ---
Discharge Summary Admission Date Mar 29, 2017 at 20:57 Discharge Date: Apr 03, 2017 Admitting Diagnosis Dehydration, MOHINI (1) Acute kidney injury (2) Metastatic colon cancer (3) Coronary artery disease (4) Weakness (5) Hypertension (6) Dyslipidemia (7) Mantle cell lymphoma (8) History of prostate cancer (9) hx robotic surgery for rectal cancer (10) Status post coronary artery bypass graft CBC/BMP: 04/03/17 0846 04/03/17 0846 Significant Findings Laboratory Tests Test 04/01/17 04/01/17 04/02/17 04/03/17 06:52 10:00 09:00 08:46 Red Blood Count 3.49 MIL/MM3 3.66 MIL/MM3 3.62 MIL/MM3 (4.50-5.90) (4.50-5.90) (4.50-5.90) Hemoglobin 10.3 GM/DL 10.8 GM/DL 10.7 GM/DL (13.0-17.0) (13.0-17.0) (13.0-17.0) Hematocrit 30.2 % 32.0 % 31.8 % (39.0-51.0) (39.0-51.0) (39.0-51.0) Platelet Count 660 TH/MM3 654 TH/MM3 581 TH/MM3 (150-450) (150-450) (150-450) Mean Platelet Volume 6.8 FL 6.8 FL (7.0-11.0) (7.0-11.0) Neutrophils (%) (Auto) 74.4 % (16.0-70.0) Platelet Estimate HIGH (NORMAL) Platelet Morphology Comment ENLARGED (NORMAL) Sodium Level 133 MEQ/L 135 MEQ/L (136-145) (136-145) Blood Urea Nitrogen 43 MG/DL (7-18) 26 MG/DL (7-18) Creatinine 2.66 MG/DL 1.83 MG/DL 1.50 MG/DL (0.60-1.30) (0.60-1.30) (0.60-1.30) Estimat Glomerular Filtration 23 ML/MIN (>89) 36 ML/MIN (>89) 45 ML/MIN (>89) Rate Calcium Level 8.2 MG/DL 8.4 MG/DL (8.5-10.1) (8.5-10.1) Urine Osmolality 266 MOSM/KG (300-1300) Carbon Dioxide Level 20.5 MEQ/L 20.6 MEQ/L (21.0-32.0) (21.0-32.0) Imaging Last Impressions Renal Ultrasound 03/30/17 0000 Signed Impressions: Service Date/Time: Thursday, March 30, 2017 10:27 - CONCLUSION: Unremarkable renal ultrasound. Kevyn Patterson MD Hospital Course This is a pleasant 76-year-old male who has been battling rectal cancer for sometime. He has undergone chemo and radiation and recently underwent an ileostomy with robotic surgery in [place], [place], for excision of the tumor. He has an ileostomy as well as a CONOR drain in place. The patient was released from the hospital. Since being home, the patient's appetite had been very poor. He had been trying to drink water but admits that he has not been drinking enough. During his hospitalization he also had A-fib with RVR. He was placed on Eliquis as well as a blood pressure medicine and he has not been having any chest pain or shortness of breath. He is not complaining of palpitations. He had been taking all of his medication but the big issue is that he is dehydrated and was unable to eat. In the past 24 hours he has broken out with a rash that is spreading throughout both of his arms and legs and a little bit onto his torso. It is very pruritic. He did ot complain of fever or chills. Did have some nausea but has not vomited and is having a lot ostomy output. INVESTIGATIONS White count is 12.5, hemoglobin 13.8, platelets are 1017. INR is 1. Sodium is 125, potassium is 5, BUN is 45, creatinine is 4.93 (previous BUN was 19, creatinine was 1.2 on May of 2016). Bilirubin is 0.5, albumin is 2.6. Pt. was admitted for: (1) Acute kidney injury (2) Metastatic colon cancer (3) History of prostate cancer (4) Dyslipidemia (5) Hypertension (6) Coronary artery disease (7) hx robotic surgery for rectal cancer (8) Weakness (9) Mantle cell lymphoma (10) Afib (11) Rash During the course of the hospitalization, the following took place: Patient was admitted, put on IV fluid. BMP was monitored. Wes inhibitors were put on hold Nephrology was consulted. Renal ultrasound was ordered, no obstruction. Home medications were reviewed and initiated as indicated Patient was encouraged to increase by mouth intake Patient was put on appropriate DVT and GI prophylaxis Physical therapy was ordered to assist with mobility Rash resolved, Benadryl was used when necessary Renal function started to improve, patient increase by mouth intake Patient was getting out of bed with minimal assistance Patient was noted depressed, he was restarted on antidepressant Remain with adequate output from ileostomy Patient needed to have CONOR removed, he was instructed to follow-up with the surgeon to have removed. RN was instructed to clean site and apply new 4 x 4 Blood pressure was stable, he was continued on beta blockers but Wes inhibitors weren't hold Patient's condition improved, renal function was stable. Patient tolerating meals well, no nausea, no vomiting Nephrology cleared for discharge Case management was consulted to arrange home health care Patient was discharged home in stable condition f/u with surgery and PCP diet-[facility] PO intake, has high output ileostomy. D/W pt and at length activity-as tolerated Pt Condition on Discharge: Fair Discharge Disposition: Disch w/ Home Health Serv Discharge Instructions DIET: Follow Instructions for: [employer] Diet Activities you can perform: Weight Bearing as Francoise Follow up Referrals: Nephrology - 2 Weeks PCP Follow-up - 1 Week Continued Medications: Apixaban (Eliquis) 5 Mg Tab 5 MG PO BID Blood Clot Prevention #60 Ref 0 TAB Citalopram (Citalopram) 40 Mg Tab 40 MG PO DAILY Control Depression #30 Ref 0 TAB Diphenoxylate-Atropine (Lomotil) 2.5-0.025 Mg Tab 1-2 TAB PO Q6H PRN DIARRHEA Ref 0 TAB Metoprolol Succinate ER 24 HR (Toprol XL) 25 Mg Tab 25 MG PO DAILY #30 Ref 0 TAB Oxycodone-Acetaminophen (Percocet) 5-325 mg Tab 1 TAB PO Q4H PRN PAIN Ref 0 TAB Discontinued Medications: Fosinopril (Fosinopril) 10 Mg Tab 10 MG PO DAILY #30 Ref 0 TAB Cecilia Hickey Apr 03, 2017 18:01
== END 2017-04-03 18:45 | disposition home health service (06) | DRG 683 ==
LOC: NEPC 15:43 → NEDA 20:57 → N05B 03-30 01:28
PROVIDERS: ADMIT Internal Medicine; ATTEND Internal Medicine
DX: N17.9 Acute kidney failure, unspecified (principal); E87.1 Hypo-osmolality and hyponatremia; E86.0 Dehydration; I48.91 Unspecified atrial fibrillation; Z79.02 Long term (current) use of antithrombotics/antiplatelets; E78.5 Hyperlipidemia, unspecified; L29.9 Pruritus, unspecified; R21 Rash and other nonspecific skin eruption; Z93.2 Ileostomy status; Z98.890 Other specified postprocedural states; I12.9 Hypertensive chronic kidney disease with stage 1 through stage 4 chronic kidney disease, or unspecified chronic kidney disease; F32.9 Major depressive disorder, single episode, unspecified; F41.9 Anxiety disorder, unspecified; I25.10 Atherosclerotic heart disease of native coronary artery without angina pectoris; Z95.1 Presence of aortocoronary bypass graft; Z85.46 Personal history of malignant neoplasm of prostate; Z87.891 Personal history of nicotine dependence; Z92.3 Personal history of irradiation; Z85.118 Personal history of other malignant neoplasm of bronchus and lung; I25.2 Old myocardial infarction; N18.9 Chronic kidney disease, unspecified; Z85.72 Personal history of non-Hodgkin lymphomas
CPT/HCPCS: 76775; 76937; 80048; 80053; 81001; 83735; 83935; 84100; 84300; 85007; 85025; 85027; 85610; 85730; 87493; 93005; 96361; 96374; J1200; J1644; J2270; J7030; J7040

== ENCOUNTER 2017-04-09 09:47 | Emergency (ER) | payer MEDICARE, BC ==
[~2017-04-09 09:47] MED LIST changes: -ALLO300T2 PO; +APIX5TAB PO; +CALCIUM CHLORIDE 10% SOLN 1 GRAM/10 ML SYR IV ONE; +EPINEPHrine HCL (1:10,000) 1 MG/10 ML SYRINGE IV ONE; +LOMO2.5T PO; -PANT40TA3 PO; +PERC5TAB12 PO; -SIMV20TA PO; +SODIUM BICARBONATE 8.4% INJ 50 MEQ/50 ML SYR IV ONE; +TOPR25TA PO
--- NOTE | 2017-04-09 10:18 | PD ---
HPI Chief Complaint: Code Blue Time Seen by Provider: 09:58 Travel History International Travel<30 days: No Contact w/Intl Traveler<30days: No History of Present Illness HPI 76yo M with rectal CA s/p ileostomy, CAD, afib presents to the ED as a cardiac arrest in asystole. Pt was found to have agonal breathing and when EVAC got there, his pulse was in the 30s and he was unresponsive. Then he became pulseless and ACLS was started. Pt was given total of 4 epinephrine, bicarbonate and glucose was 150. Pt was in asystole for 25 min prior to arrival to the ED. Pt had fixed, dilated pupils and was in asystole in the ED. Additional 3 epinephrine and 1 calcium chloride and 1 sodium bicarb was given in the ED. Pt remained asystole and bedside ultrasound confirmed no cardiac activity. Pt was pronounced at 9:56am. As per review of records, pt was admitted 03/29-04/03/17 for MOHINI and dehydration. As per , pt has not been eating much or drinking and there was black stool in colostomy bag since yesterday but he did not want to come to hospital. He has not been feeling well. PFSH Past Medical History Cancer: Yes (STAGE IV LUNG/ PROSTATE CANCER) Cardiac Catheterization: Yes Cardiovascular Problems: Yes (CABG X 3) Chemotherapy: Yes (R/T LUNG CA) Diabetes: No Diminished Hearing: No Endocrine: No Genitourinary: No Hypertension: Yes Immune Disorder: No Musculoskeletal: No Neurologic: No Psychiatric: No Reproductive: No Respiratory: No Myocardial Infarction: Yes Radiation Therapy: Yes (April 11) Past Surgical History Cardiac Surgery: Yes (Quadruple bypass [place] [address] Rodríguez) Coronary Artery Bypass Graft: Yes (X4) Social History Alcohol Use: No Tobacco Use: No Substance Use: No Allergies-Medications (Allergen,Severity, Reaction): Coded Allergies: No Known Allergies (Unverified , 03/29/17) Reported Meds & Prescriptions Reported Meds & Active Scripts Active Reported Lomotil (Diphenoxylate-Atropine) 2.5-0.025 Mg Tab 1-2 Tab PO Q6H PRN Toprol XL (Metoprolol Succinate) 25 Mg Tab 25 Mg PO DAILY Percocet (Oxycodone-Acetaminophen) 5-325 mg Tab 1 Tab PO Q4H PRN Eliquis (Apixaban) 5 Mg Tab 5 Mg PO BID Citalopram (Citalopram Hydrobromide) 40 Mg Tab 40 Mg PO DAILY Review of Systems ROS Limitations: Clinical Condition Physical Exam Narrative GENERAL: 76yo M unresponsive. SKIN: Focused skin assessment warm/dry. HEAD: Atraumatic. Normocephalic. EYES: Pupils fixed and dilated at 5mm bilaterally. ENT: No nasal bleeding or discharge. NECK: Trachea midline. No JVD. CARDIOVASCULAR: Asystole. RESPIRATORY: Intubated by EVAC, breath sounds equal bilaterally. GASTROINTESTINAL: Abdomen soft, +Colostomy bag with tarry stools. MUSCULOSKELETAL: No obvious deformities. No clubbing. No cyanosis. No edema. Right tibia IO in placed. NEUROLOGICAL: Unresponsive. MDM Medical Decision Making Medical Screen Exam Complete: Yes Emergency Medical Condition: Yes Differential Diagnosis PEA arrest secondary to massive GA vs. PE vs. GI bleed vs. ICH Narrative Course 76yo M with metastatic colon CA here with PEA arrest. Please see HPI for details. I discussed with pt's and son and answered all questions. Pt's primary care physician Dr. Buckley was notified and will sign certificate. Diagnosis Primary Impression: Cardiac arrest Disposition: 20 Condition: Jazzy James DO Apr 09, 2017 10:18
== END 2017-04-09 11:43 | disposition expired ==
LOC: PHED 09:47
DX: I46.9 Cardiac arrest, cause unspecified (principal); I10 Essential (primary) hypertension
CPT/HCPCS: 92950; 99284; J0171